=== PATIENT | male | born 1955 | race Hispanic/Latino ===

== ENCOUNTER → 2018-02-14 | Day surgery (SDC) | payer OTHER ==
--- NOTE | 2018-02-08 09:04 | Diagnostic Imaging Report ---
PROCEDURE: X-RAY CHEST, TWO VIEWS COMPARISON: None. INDICATIONS: PREOPERATIVE CHEST XRAY FOR FOOT SURGERY FINDINGS: Lungs are well-inflated. No focal airspace consolidation, pleural effusion, or pneumothorax. Cardiomediastinal contour and pulmonary vasculature are within normal limits. No acute osseous abnormality. CONCLUSION: No acute thoracic abnormality. Dictated by: Nba Alan M.D. on 02/08/2018 at 9:14 Electronically approved by: Nba Alan M.D. on 02/08/2018 at 9:14
[~2018-02-14] MED LIST: ACETAMINOPHEN 1000 MG/100 ML IV ONE; BETAMETHASONE DISODIUM PHOS 6 MG/ML VIAL ONE; BUPIVACAINE HCL 0.5% INJ 30 ML VIAL INJ ONE; CEFAZOLIN SOD 2 GM/D5W 50ML 50 ML IV ONE; DEXAMETHASONE SOD PHOS INJ 4 MG/ML VIAL ONE; EPHEDRINE SULFATE INJ 50 MG/10 ML SYR ONE; FENTANYL CITRATE/PF 100MCG/2 ML INJ ONE; KETOROLAC TROMETHAMINE 30 MG/ML VIAL ONE; LIDOCAINE HCL 1% LOCAL INJ 20 ML VIAL ONE; LIDOCAINE HCL 2% LOCAL INJ 5 ML SDV VIAL INJ ONE; MIDAZOLAM HCL 2 MG/2 ML VIAL ONE; MULTI-VITAMIN1 EACH; MUPIROCIN 2% OINT 22 GM TUBE ONE; ONDANSETRON HCL INJ 2 MG/ML VIAL ONE; PROBIOTICS; PROPOFOL IV EMULSION 10 MG/ML 20 ML VIAL ONE; SEVOFLURANE INHAL SOLN 250 ML PEN BTL ONE; [UNRECOGNIZED DRUG - OTHER]
--- OUTSIDE RECORDS SUMMARY | 2018-02-14 05:26 | XMS REPORT ---
Author [facility] Address Unknown Phone Unavailable Care Team Providers [facility] Pharmacy Technician Name Role Phone MALLORIE TEJADA Unavailable Unavailable Problems This patient has no known problems. Allergies, Adverse Reactions, Alerts This patient has no known allergies or adverse reactions. Medications This patient has no known medications. Results Test Description Test Time Test Comments Text Results Atomic Results Result Comments CHEST 2 VIEWS 2018-02-08 09:14:00 [place] [address] Patient Name: DAWOOD DE LEON MR #: [id number] : 1955 Age/Sex: 62/M Req #: [id number] Adm Physician: Ordered by: MALLORIE TEJADA DPM Report #: [id number] Location: OR Room/Bed: Procedure: [id number] DX/CHEST 2 VIEWS Exam Date: 02/08/18 Exam Time: 0845 REPORT STATUS: Signed PROCEDURE: X-RAY CHEST, TWO VIEWS COMPARISON: None. INDICA TIONS: PREOPERATIVE CHEST XRAY FOR FOOT SURGERY FINDINGS: Lungs are well-inflated. No focal airspace consolidation, pleural effusion, or pneumothorax. Cardiomediastinal contour and pulmonary vasculature are within normal limits. No acute osseous abnormality. CONCLUSION: No acute thoracic abnormality. Dictated by: Margie Vines M.D. on 02/08/2018 at 9:14 Electronically approved by: Margie Vines M.D. on 02/08/2018 at 9:14 Dictated By: MARGIE VINES MD 3 Transcribed By: ZUNILDA on 02/08/18913 COPY TO: MALLORIE TEJADA DPM
[2018-02-14 09:40] VITALS: BP 103/74
--- NOTE | 2018-02-14 09:47 | Diagnostic Imaging Report ---
LEFT FOOT - 2 VIEWS HISTORY: Postop, status post surgery, PACU COMPARISON: None available. FINDINGS: Overlying splint and bandage partially limits bone detail. Bones: Attenuation of the medial aspect of the first metatarsal head. A metallic screw metallic pin fixates the distal metaphysis of the first metatarsal bone. Pin fixation of the fourth phalanx. Pes planus. Joints: Minimal multifocal degenerative changes. Soft tissues: Regional soft tissue swelling. IMPRESSION: Post surgical changes, as detailed above. Signed by: Dr. Beni Colbert D.O., M.M.M. on 02/14/2018 9:43 AM
--- NOTE | 2018-02-14 10:01 | Operative Report ---
DATE OF PROCEDURE: February 14, 2018 PREOPERATIVE DIAGNOSES 1. Painful hallux valgus deformity, left foot. 2. Painful contracted hammertoe 4th digit, left. 3. Painful contracted hammertoe 5th digit, left. 4. Metatarsal cuneiform exostosis, left foot. 5. Neuralgia, superficial cutaneous nerve, left foot. 6. Plantar fasciitis, left foot. POSTOPERATIVE DIAGNOSES 1. Painful hallux valgus deformity, left foot. 2. Painful contracted hammertoe 4th digit, left. 3. Painful contracted hammertoe 5th digit, left. 4. Metatarsal cuneiform exostosis, left foot. 5. Neuralgia, superficial cutaneous nerve, left foot. 6. Plantar fasciitis, left foot. OPERATIVE PROCEDURES 1. Mikey bunionectomy with screw fixation, left foot. 2. Arthroplasty, 4th digit, with Best wire fixation, left foot. 3. Arthroplasty, 5th digit, left foot. 4. Metatarsal cuneiform exostectomy, left foot. 5. Neurolysis, superficial cutaneous nerve, left foot. 6. Endoscopic plantar fasciotomy, left foot. 7. Intraoperative use of fluoroscopy. 8. Trigger-point shot of cortisone. 9. Application of posterior splint. ANESTHESIA: General. HEMOSTASIS: Pneumatic thigh tourniquet at 350 mmHg. PROCEDURE IN DETAIL: Patient was taken into the operating room and placed on the operating room table in supine position. Following induction of general anesthesia by the anesthesiologist, Webril wraps were placed on the patient's left thigh followed by application of a left thigh tourniquet. The left lower extremity was then prepped and draped in the usual aseptic manner, and the following procedures were then performed: Procedure #1: Mikey bunionectomy with screw fixation, left foot. Attention was directed to the dorsomedial aspect of the 1st MPJ where a 6-cm linear incision was performed. The incision was deepened down to the joint capsule. A longitudinal capsulotomy was then performed, exposing a dorsomedial exostosis of the 1st metatarsal head. Via the use of an oscillating saw and rotating bur, dorsomedial exostosis was excised from the operation site in toto. A V-osteotomy was then performed from medial to lateral. Capital fragment was then transpositioned laterally. Upon adequate surgical and anatomical reduction, utilizing proper AO technique, a 2.0 x 18 mm cortical screw in conjunction with a buried 0.045 K-wire was used to achieve stability of the osteotomy site. All redundant bone medially was excised via the use of an oscillating saw and rotating bur. Range of motion was still noted to be track bound. The extensor brevis tendon was then isolated and tenotomized. Once that was done, range of motion was aligned and very good. Procedures #2 and #3: Arthroplasty, 4th and 5th digits, with K-wire fixation of 4th. Attention was then directed to the dorsal aspect of the 4th and 5th toes where a 3-cm linear incision was performed. Incision was deepened down to the joint capsule. Transverse capsulotomy was then performed, exposing the head of the proximal phalanx. Via the use of an oscillating saw, the heads of the proximal phalanges were excised from the operation site in toto. All rough and bony edges were rasped smooth. The 4th toe was still noted to be contracted so a 0.045 K-wire was introduced up the metatarsophalangeal joint to achieve proper anatomical reduction. Procedure #4: Met cuneiform exostectomy, left foot. Attention was then directed to the dorsal aspect of the left lower extremity where a 4 to 5 cm linear incision was performed. The incision was deepened via sharp and blunt dissection, being careful to retract any vital structures and ligate superficial vessels as necessary. Once the level of the capsule was reached, a longitudinal capsulotomy was then performed, exposing the met cuneiform exostosis. Via the use of an osteotome and mallet, the met cuneiform exostosis was excised from the operation site in toto. All rough and bony edges were rasped smooth via the use of a rotating bur. Procedure #5: Neurolysis, superficial cutaneous nerve. The incision was then deepened and lengthened a little bit longer. The superficial cutaneous nerve overlying the met cuneiform exostosis was isolated and neurolysed. All adhesions surrounding the nerve were dissected free utilizing blunt dissection. Procedure #6. Endoscopic plantar fasciotomy, left foot. Attention was then directed to the medial aspect of the left heel 5 cm from the posterior aspect and 2 cm from the plantar aspect where a stab incision was performed. The incision was then deepened via a spatula were the plantar fascia was felt dorsally. A stab incision was then performed laterally, and a cannula was introduced from medial to lateral. Camera then introduced laterally, and the plantar fascia was clearly visualized. Via the use of a triangle knife, the medial one-half of the plantar fascia was cut until the underlying muscle belly was visualized, and a medial plantar fascial release was achieved. Intraoperative pictures were taken. All areas were then copiously flushed with sterile antibiotic solution and suctioned. Procedure #7: Intraoperative use of fluoroscopy was then used to make sure proper alignment and fixation were achieved. Closure was then obtained utilizing 3-0 Vicryl, 4-0 Vicryl, 4-0 nylon for capsule, subcutaneous tissue and skin respectively. Procedure #8: Trigger-point shot of cortisone was given to the 1st and 4th interspace of the left foot, and approximately 15 mL of 0.5% plain Marcaine plus 10 mL of 1% Xylocaine plain were used to achieve local anesthesia of the above-mentioned surgical area. Sterile dressing was applied. Upon release of the thigh tourniquet, blood hyperemia was noted to be immediate to all digits of the patient's left foot. Procedure #9: Application of a posterior splint. A properly placed posterior splint was then applied, keeping the foot at 90 degrees with respect to the leg, to try to prevent any type of postoperative complications. Patient was then transferred from the OR to the recovery room with vital signs stable and neurovascular status intact. No intraoperative complications were encountered. Blood loss from the surgery was minimal. Patient is to remain nonweightbearing with the aid of crutches. Keep the foot elevated. He is to apply an ice pack to the ankle joint area. Job#: [id number]
== END | disposition home or self-care (01) ==
LOC: OR 05:24
PROVIDERS: ATTEND Podiatrist Foot Surgery
DX: M20.12 Hallux valgus (acquired), left foot (principal); M25.775 Osteophyte, left foot; M72.2 Plantar fascial fibromatosis; M20.42 Other hammer toe(s) (acquired), left foot; G58.8 Other specified mononeuropathies; R05 Cough; E78.5 Hyperlipidemia, unspecified; I49.3 Ventricular premature depolarization; Z01.810 Encounter for preprocedural cardiovascular examination; Z01.818 Encounter for other preprocedural examination
CPT/HCPCS: 28104; 28285 ×2; 28296; 29893; 64704; 71046; 73620; 93005; C1713; J0131; J0690; J0720; J1100; J1885; J2001 ×2; J2250; J2405; J2704